=== PATIENT | male | born 1970 | race Caucasian/White ===

== ENCOUNTER 2020-02-29 17:33 | Inpatient (IN) | payer OTHER ==
[~2020-02-29] VITALS: Ht 172.7 cm; Wt 74.8 kg
== END 2020-03-04 21:20 | disposition home or self-care (01) | DRG 179 ==
LOC: ER 17:33 → SEC-K 03-01 12:08 → MEDJ 03-02 10:33
PROVIDERS: ADMIT Internal Medicine; ATTEND Internal Medicine
PROC: 8E0ZXY6 Isolation (ICD-10-PCS; principal; 2020-03-01)
PROC: 4A033R1 Measurement of Arterial Saturation, Peripheral, Percutaneous Approach (ICD-10-PCS; 2020-03-01)
PROC: 3E0F7GC Introduction of Other Therapeutic Substance into Respiratory Tract, Via Natural or Artificial Opening (ICD-10-PCS; 2020-03-01)
DX: U07.1 COVID-19 (principal)

== ENCOUNTER 2020-03-17 22:00 | Emergency (ER) | payer OTHER ==
[~2020-03-17] VITALS: Ht 172.7 cm; Wt 71.7 kg
[2020-03-18] MEDS ORDERED: INTESTINEX680 M1 PO (03:09)
[2020-03-18] MEDS ORDERED: LEVSIN/SL0.125 MG SL (03:09)
== END 2020-03-18 03:17 | disposition home or self-care (01) ==
LOC: ER 22:00
DX: U07.1 COVID-19 (principal); B34.9 Viral infection, unspecified; R06.02 Shortness of breath; R42 Dizziness and giddiness; R50.9 Fever, unspecified; R19.7 Diarrhea, unspecified